=== PATIENT | female | born 1965 ===

== ENCOUNTER 2016-08-11 01:13 | Emergency (ER) | payer BC ==
[2016-08-11 01:13] VITALS: BMI 30.8
[2016-08-11 01:44] LABS: RBC URINE 1 /hpf (0-3); URINE BACTERIA RARE (<OCC); URINE BILIRUBIN NEGATIVE (NEGATIVE); URINE BLOOD NEGATIVE (NEGATIVE); URINE COLOR Yellow (YELLOW); URINE GLUCOSE (UA) NORMAL (Normal); URINE KETONE TRACE mg/dL (NEGATIVE); URINE LEUKOCYTE ESTERASE NEG Leu/uL (Negative); URINE PROTEIN NEGATIVE (NEGATIVE); URINE UROBILINOGEN NORMAL mg/dL (0.2-1.0); WBC URINE 3 /hpf (0-5)
--- NOTE | 2016-08-11 02:03 | C.PDOC ---
History Of Present Illness 51 year old pt c/o pain in left lower and upper quadrants with radiation to the rectum that started yesterday. Pt reports pain on defecation but denies hard stools or constipation, bloody stools, nausea, vomiting, urinary symptoms, fever , or any other complaints. Pt's last bowel movement prior to arrival was normal. Time Seen by Provider: 08/11/16 01:29 Chief Complaint (Nursing): Female Genitourinary History Per: Patient History/Exam Limitations: no limitations Onset/Duration Of Symptoms: Days Current Symptoms Are (Timing): Still Present Severity: Mild Location Of Pain/Discomfort: LUQ, LLQ Associated Symptoms: Other (Pain radiation to rectum). denies: Fever, Nausea, Vomiting, Diarrhea, Constipation, Urinary Symptoms Last Bowel Movement: Other (Normal) Past Medical History Reviewed: Historical Data, Nursing Documentation, Vital Signs Vital Signs: Last Vital Signs Temp 98.1 F 08/11/16 06:21 Pulse 80 08/11/16 06:21 Resp 16 08/11/16 06:21 BP 122/82 08/11/16 06:21 Pulse Ox 98 08/11/16 06:38 - Medical History PMH: Arthritis, Asthma, Fractures, Rheumatoid Arthritis Denies: Chronic Kidney Disease Family History: States: Unknown Family Hx - Social History Hx Tobacco Use: No Hx Alcohol Use: No Hx Substance Use: No - Immunization History Hx Tetanus Toxoid Vaccination: No Hx Influenza Vaccination: Yes (06/2013) Hx Pneumococcal Vaccination: No Review Of Systems Constitutional: Negative for: Fever Gastrointestinal: Positive for: Abdominal Pain, Rectal Pain. Negative for: Vomiting, Diarrhea, Constipation, Other (Blood in stool) Genitourinary: Negative for: Dysuria, Hematuria Physical Exam - Physical Exam Appears: Well, Non-toxic Skin: Warm, Dry Eye(s): bilateral: Normal Inspection, PERRL Oral Mucosa: Moist Cardiovascular: Rhythm Regular Respiratory: Normal Breath Sounds, No Rales, No Rhonchi, No Wheezing Gastrointestinal/Abdominal: Tenderness (Left upper and lower quadrants.), No Mass, No Distention, No Guarding, No Rebound Rectal: Rectal Tone (normal), Maroon Stool, No Blood Streaked Stool, No Hemorrhoids, Mass (?palpable mass in rectum) Back: Normal Inspection, No CVA Tenderness ED Course And Treatment - Laboratory Results Result Diagrams: 08/11/16 02:14 08/11/16 02:14 O2 Sat by Pulse Oximetry: 98 - CT Scan/US CT Abd/Pel Other Rad Studies (CT/US): Interpreted By Me, Read By Radiologist CT/US Interpretation: EXAM: CT Abdomen and Pelvis With Intravenous Contrast. CLINICAL HISTORY: 51 years old, female; Pain; Abdominal pain and other: Ipper and lowerleft; Patient HX: [id number];. Additional info: Luq/llq pain, ? rectal mass. TECHNIQUE: Axial computed tomography images of the abdomen and pelvis with intravenous contrast. This CT. exam was performed using one or more of the following dose reduction techniques: automated. exposure control, adjustment of the mA and/or kV according to patient size, and/or use of iterative. reconstruction technique. Coronal and sagittal reformatted images were created and reviewed. COMPARISON: CT - ABD PELVIS W/O PO OR 04/08/2015 3: 06:01 AM. FINDINGS: Lower thorax: There is minimal bibasilar atelectasis. Large calcified granuloma at the left base. Tiny hiatal hernia. ABDOMEN: Liver: There is a diffuse decrease in hepatic parenchymal density, consistent with fatty infiltration. There are no focal liver lesions present. Gallbladder and bile ducts: The gallbladder is contracted but otherwise normal. No calcified stones. No ductal dilation. Pancreas: The pancreas is normal. No ductal dilation. Spleen: The spleen is normal. Adrenals: The adrenal glands are normal. Kidneys and ureters: The kidneys are normal. No hydronephrosis. Stomach and bowel: The stomach is normal. There is no evidence of intestinal obstruction. No. mucosal thickening. Appendix: A normal appendix is identified. PELVIS: Bladder: The bladder is normal. Reproductive: The uterus is normal. ABDOMEN and PELVIS: Intraperitoneal space: There is no evidence of free intraperitoneal fluid. There is no free. intraperitoneal air. Bones/ joints: There are moderate degenerative changes present. There is mild diffuse osteopenia. No acute fracture. No dislocation. Soft tissues: Unremarkable. Vasculature: The aorta is normal. No abdominal aortic aneurysm. Lymph nodes: There is no evidence of lymphadenopathy. IMPRESSION: No acute findings. Progress Note: Labs was done on pt. CT scan was done. Reassessment: Labs and CT results d/w pt via child care associate- Sherron from registration-. Pt is in no pain. Abdomen is soft and nontender. pt was advise to follow with PMD for possible colonoscopy referral. Return precautions were given Reevaluation Time: 06:00 Reassessment Condition: Improved Disposition Counseled Patient/Family Regarding: Diagnosis, Need For Followup, Rx Given - Disposition Disposition: HOME/ ROUTINE Disposition Time: 06:08 Condition: GOOD Additional Instructions: Please follow up with PMD for colonoscopy referral Eat high fibr diet Tylenol or advil for pain Return to ER if worse Prescriptions: Psyllium Husk/Aspartame [Metamucil Fiber Singles Packet] 3.4 gm PO DAILY #30 powd.pack Instructions: Acute Abdominal Pain (DC) Print Language: LITHUANIAN - Clinical Impression Clinical Impression: Rectal pain, Abdominal pain - Scribe Statement The provider has reviewed the documentation as recorded by the Scribrodrigo Bosch All medical record entries made by the Jatinderibrodrigo were at my direction and personally dictated by me. I have reviewed the chart and agree that the record accurately reflects my personal performance of the history, physical exam, medical decision making, and the department course for this patient. I have also personally directed, reviewed, and agree with the discharge instructions and disposition.
[2016-08-11 02:16] LABS: BASO # 0.1 K/uL (0.0-0.2); BASO % 0.9 % (0.0-2.0); EOS # 0.3 K/uL (0.0-0.7); EOS % 4.4 % (0.0-4.0); HEMATOCRIT 36.2 % (34.0-47.0); LYMPH # 2.4 K/uL (1.0-4.3); LYMPH % 33.4 % (20.0-40.0); MEAN CELL VOLUME 82.8 fL (81.0-99.0); MEAN CORPUSCULAR HEMOGLOBIN 27.5 pg (27.0-31.0); MEAN CORPUSCULAR HGB CONC 33.3 g/dL (33.0-37.0); MEAN PLATELET VOLUME 7.8 fL (7.2-11.7); MONO # 0.6 K/uL (0.0-0.8); MONO % 8.5 % (0.0-10.0); RED CELL DISTRIBUTION WIDTH 13.6 % (11.5-14.5); WHITE BLOOD COUNT 7.2 K/uL (4.8-10.8)
[2016-08-11 02:31] LABS: CHLORIDE 97 mmol/L (98-107)
[2016-08-11 02:32] LABS: POTASSIUM 3.5 mmol/L (3.6-5.2); SODIUM 139 mmol/L (132-148)
[2016-08-11 02:34] LABS: ALB/GLOB RATIO 1.3 (1.0-2.1); ALKALINE PHOSPHATASE 91 U/L (38-126); AST/SGOT 22 U/L (14-36); BILIRUBIN,TOTAL 0.2 mg/dL (0.2-1.3); BLOOD UREA NITROGEN 13 mg/dL (7-17); CARBON DIOXIDE 27 mmol/L (22-30); GFR AFRICAN-AMERICAN > 60; TOTAL PROTEIN 7.2 g/dL (6.3-8.3)
[2016-08-11 02:35] LABS: ALT/SGPT 31 U/L (9-52); CALCIUM 8.7 mg/dl (8.6-10.4); GLUCOSE,RANDOM 132 mg/dL (65-105)
[2016-08-11] MEDS ORDERED: Iohexol 240 (50 ml) ONE (02:47)
[2016-08-11 04:43] VITALS: RESP 16
[2016-08-11] MEDS ORDERED: Iodixanol 320 MG/ML 100 ML BOTTLE IV ONE (04:46)
[2016-08-11 06:22] VITALS: BP 122/82; PULSE 80; TEMP 98.1; O2SAT 98
--- NOTE | 2016-08-11 09:18 | CT ---
PROCEDURE: CT Abdomen and Pelvis with contrast HISTORY: LUQ/LLQ pain, ?rectaL MASS COMPARISON: None. TECHNIQUE: Contrast dose: 100 mL Visipaque 320 Radiation dose: Total exam DLP = 738.61 mGy-cm. FINDINGS: LOWER THORAX: Area of dystrophic calcification in the left lung base. LIVER: Findings suggestive of hepatic steatosis. GALLBLADDER AND BILE DUCTS: Unremarkable. PANCREAS: Unremarkable. No gross lesion or ductal dilatation. SPLEEN: Unremarkable. ADRENALS: Unremarkable. No mass. KIDNEYS AND URETERS: Unremarkable. No hydronephrosis. No solid mass. VASCULATURE: Unremarkable. No aortic aneurysm. BOWEL: Unremarkable. No obstruction. No gross mural thickening. APPENDIX: Normal appendix. PERITONEUM: Unremarkable. No free fluid. No free air. LYMPH NODES: Unremarkable. No enlarged lymph nodes. BLADDER: Unremarkable. REPRODUCTIVE: Unremarkable. BONES: No acute fracture. OTHER FINDINGS: None. IMPRESSION: No acute findings. Please note that this report is in general agreement with the preliminary report provided by [facility].
== END 2016-08-11 06:22 | disposition home or self-care (01) ==
LOC: C.ER 01:13
DX: K62.89 Other specified diseases of anus and rectum (principal); R10.32 Left lower quadrant pain; R10.12 Left upper quadrant pain
CPT/HCPCS: 74177; 80053; 81001; 83690; 84703; 85025; 96374; 99284; J1885; Q9967